=== PATIENT | female | born 1950 | race Caucasian/White ===

== ENCOUNTER 2017-04-13 10:45 | Inpatient (IN) | payer OTHER ==
--- NOTE | 2017-05-06 16:50 | ASMTCMCOM ---
MEREDITH Note CM Note Notes: I returned a call to patient left on the Float phone. She is having a TKA with Dr Montgomery 05/11 and had some questions about her hospitalization and discharge. We talked about what she can bring to hospital (clothes, toiletries, meds, etc). She is planning on going to [facility] for rehab and knows she will be here for the required days. She has toured the facility. I believe that I answered all of her questions, and she will expect to meet with us after her surgery. Date Signed: 05/06/2017 04:50 PM Electronically Signed By:Eileen Rayo RN
[2017-05-11] MEDS ORDERED: ROPIVACAINE 0.2% 80 MG, EPINEPHrine 0.2 MG, KETOROLAC TROMETHAMINE 30 MG in SYRINGE 0 ML IU ONE (06:00)
[2017-05-11] MEDS ORDERED: ceFAZolin 1 GM/5 ML SYR ONE (08:13)
[2017-05-11] MEDS ORDERED: DEXAMETHASONE 4 MG/ML VIAL IVP ONE (09:13)
[2017-05-11] MEDS ORDERED: FAMOTIDINE 20 MG TAB PO ONE (09:13)
[2017-05-11] MEDS ORDERED: ceFAZolin 2 GM/SWFI 2 GM/20 ML SYR IVP ONE (09:13)
[2017-05-11] MEDS ORDERED: ACETAMINOPHEN 325 MG TAB PO ONE (09:13)
--- NOTE | 2017-05-11 09:27 | PDANEPAE ---
ANE History of Present Illness 66 yo female with R knee OA for R TKA. ANE Past Medical History - Cardiovascular History Hx Hypertension: No Hx Arrhythmias: Yes Hx Chest Pain: No Hx Coronary Artery / Peripheral Vascular Disease: No Hx CHF / Valvular Disease: No Hx Palpitations: No Cardiovascular History Comment: paroxysmal A-fib - no syncope/pre-syncope/CP/CV - Pulmonary History Hx COPD: No Hx Asthma/Reactive Airway Disease: No Hx Recent Upper Respiratory Infection: Yes Hx Oxygen in Use at Home: No Hx Sleep Apnea: No Sleep Apnea Screening Result - Last Documented: Negative - Neurologic History Hx Cerebrovascular Accident: No Hx Seizures: No Hx Dementia: No - Endocrine History Hx Diabetes: No Hypothyroid: No Obesity: no - Renal History Hx Renal Disorders: No - Liver History Hx Hepatic Disorders: No - Neurological & Psychiatric Hx Hx Neurological and Psychiatric Disorders: Yes Neurological / Psychiatric History Comment: anxiety,depression,ptsd - Cancer History Hx Cancer: Yes Cancer History Comment: lymphoma 2000 - Congenital Disorder History Hx Congenital Disorders: No - GI History GERD: no Hx Gastrointestinal Disorders: No - Other Health History Other Health History: none. pt's head cold resolved 2 days ago. Believes it may have been allergies (itchy, watery eyes with nasal congestion) - Chronic Pain History Chronic Pain: Yes (left knee, back) - Surgical History Prior Surgeries: left knee replacement 2014. Fx ankle repair x2 2010 ANE Review of Systems Review of Systems: - Exercise capacity METS (RN): 4 METS - Systems EENMT: Reports: tearing, nose congestion (Pt states these resolved about 2 days ago. Thinks it may have been allergy related.) Cardiac: Reports: no symptoms Respiratory: Reports: no symptoms Gastrointestinal: Reports: no symptoms ANE Patient History - Allergies Allergies/Adverse Reactions: morphine Allergy (Severe, Verified 05/01/17 14:09) Other-Enter Comments - Home Medications Home Medications: ALPRAZolam [Xanax 0.5 MG (*)] 0.5 mg PO HS PRN 03/18/17 [Last Taken 05/11/17] Aspirin EC [Aspirin EC 81 mg (*)] 81 mg PO HS 03/18/17 [Last Taken Unknown] Atorvastatin Calcium [Lipitor 40 mg (*)] 40 mg PO HS 03/18/17 [Last Taken ] Cholecalciferol Vit D3 [Vitamin D3 (*)] 1,000 units PO DAILY 03/18/17 [Last Taken 05/04/17] Citalopram Hydrobromide [Citalopram HBr] 40 mg PO DAILY 03/18/17 [Last Taken Unknown] Diazepam [Valium 10 MG (*)] 10 mg PO DAILY PRN 03/18/17 [Last Taken 05/11/17] Divalproex Sodium 250 mg PO DAILY 03/18/17 [Last Taken 05/11/17] Herbals/Supplements -Info Only 1 ea PO DAILY 03/18/17 [Last Taken 05/04/17] Multivitamins [Multivitamin (*)] 1 each PO DAILY 03/18/17 [Last Taken 05/04/17] lamoTRIgine [LamICTAL 100 MG (*)] 100 mg PO DAILY 03/18/17 [Last Taken 05/11/17] lamoTRIgine [LamICTAL] 25 mg PO DAILY 03/18/17 [Last Taken 05/11/17] risperiDONE [RisperDAL] 1 mg PO HS 03/18/17 [Last Taken 05/11/17] - NPO status NPO Since - Liquids (Date): 05/11/17 NPO Since - Liquids (Time): 07:00 NPO Since - Solids (Date): 05/10/17 NPO Since - Solids (Time): 19:30 - Anes Hx Anes Hx: no prior problems - Smoking Hx Smoking Status: Former smoker - Alcohol Use Alcohol Use: Occasionally - Family Anes Hx Family Anes Hx: neg - N/A Family Hx Anesthesia Complications: none ANE Labs/Vital Signs - Vital Signs Blood Pressure: 143/75 Heart Rate: 70 Respiratory Rate: 14 O2 Sat (%): 93 Height: 162.56 cm Weight: 79.379 kg ANE Physical Exam - Airway Neck exam: FROM Mallampati Score: Class 2 Mouth exam: normal dental/mouth exam - Pulmonary Pulmonary: clear to auscultation - Cardiovascular Cardiovascular: regular rate and rhythym - ASA Status ASA Status: III ANE Anesthesia Plan Anesthesia Plan: spinal Regional Anesthesia: adductor canal FNB
[2017-05-11] MEDS ORDERED: LR 1,000 ML IV ONE (09:41)
[2017-05-11] MEDS ORDERED: DIAZEPAM 10 MG TAB PO ONE (09:44)
[2017-05-11] MEDS ORDERED: DIAZEPAM 5 MG TAB ONE (09:51)
--- NOTE | 2017-05-11 10:02 | PDHPUP ---
History & Physical Update H&P update statement: This history and physical update is based on an assessment of the patient which was completed after admission or registration (within 24 hours), but prior to the surgery/procedure. H&P update: H&P reviewed & patient examined, no change in patient's condition since H&P completed
[2017-05-11] MEDS ORDERED: fentaNYL 100 MCG/2 ML INJ ONE (10:20)
[2017-05-11] MEDS ORDERED: DEXAMETHASONE 4 MG/ML VIAL ONE (10:20)
[2017-05-11] MEDS ORDERED: LIDOCAINE 2% 5 ML SDV ONE (10:20)
[2017-05-11] MEDS ORDERED: PROPOFOL/EMULSION 500 MG/50 ML BOTTLE IV ONE ×2 (10:21)
[2017-05-11] MEDS ORDERED: THROMBIN (BOVINE) 5,000 UNIT VIAL TP ONE (11:24)
[2017-05-11] MEDS ORDERED: CALCIUM CHLORIDE 1 GM/10 ML INJ ONE (11:24)
[2017-05-11] MEDS ORDERED: BUPIVACAINE 0.5% 10 ML SDV ONE (11:47)
--- NOTE | 2017-05-11 13:10 | POSTANESTH ---
Post Anesthetic Evaluation Cardiovascular Status: Normal, Stable Respiratory Status: Normal, Stable Level of Consciousness/Mental Status: Can Participate in Eval, Mildly Sleepy, Arousable Pain Control: Adequate, Prn Tx Ordered Nausea/Vomiting Control: Adequate, Prn Tx Ordered Complications Possibly Related to Anesthesia: None Noted (Moving LLE. RLE still immobile secondary to spinal block.)
[2017-05-11] MEDS ORDERED: LACTULOSE 20 GM/30 ML UDCUP PO PRN (13:11)
[2017-05-11] MEDS ORDERED: PROMETHAZINE HCL 25 MG/ML INJ IVP PRN (13:11)
[2017-05-11] MEDS ORDERED: DIPHENOXYLATE/ATROPINE LOMOTIL 1 TAB PO PRN (13:11)
[2017-05-11] MEDS ORDERED: METOCLOPRAMIDE 10 MG/2 ML VIAL IVP PRN (13:11)
[2017-05-11] MEDS ORDERED: MAGNESIUM HYDROXIDE 30 ML UDCUP PO PRN (13:11)
[2017-05-11] MEDS ORDERED: BISACODYL 10 MG SUPP PR PRN (13:11)
[2017-05-11] MEDS ORDERED: POLYETHYLENE GLYCOL 3350 17 GM PKT PO PRN (13:11)
[2017-05-11] MEDS ORDERED: diphenhydrAMINE 25 MG CAP PO PRN (13:11)
[2017-05-11] MEDS ORDERED: PROMETHAZINE HCL 25 MG SUPPR PR PRN (13:11)
[2017-05-11] MEDS ORDERED: DIAZEPAM 10 MG TAB PO PRN (13:15)
[2017-05-11] MEDS ORDERED: LR 1,000 ML IV SCH (13:30)
[2017-05-11] MEDS ORDERED: ceFAZolin 2 GM/SWFI 2 GM/20 ML SYR IVP SCH (14:00)
--- NOTE | 2017-05-11 14:26 | POSTOPPROG ---
Post Op Note Date of Operation: 05/11/17 Surgeon: Renu Montgomery Saw Repairer: Sue Blood PA-C Anesthesiologist: Dr. England Anesthesia: GET(General Endotracheal) Pre-op Diagnosis: right knee osteoarthritis Post-op Diagnosis: right knee osteoarthritis Indication: right knee pain Procedure: right TKA Inf/Abcess present in the surg proc area at time of surgery?: No EBL: Minimal Complications: none
--- NOTE | 2017-05-11 14:27 | SOAPPROG ---
SOAP Progress Note Assessment/Plan: Assessment/Plan: 66y/o female s/p right TKA - stable and doing well - orders as written - post-op xrays pending - PT/OT - active care system; ASA start tomorrow - call with issues or concerns, may need rehab 05/11/17 14:26 Subjective: No pain, doing well Objective: Vital Signs Temp Pulse Resp BP Pulse Ox 36.7 C 70 14 143/75 H 96 05/11/17 13:49 05/11/17 10:15 05/11/17 10:15 05/11/17 10:15 05/11/17 13:49 NAD, well appearing, no distress EOMi, face symmetric MAEx4 incision clean, dressed ICD10 Worksheet Patient Problems: Problems Problem Status Onset Arthritis of knee Acute - ICD10 Problem Qualifiers (1) Arthritis of knee
--- NOTE | 2017-05-11 15:28 | ASMTCMCOM ---
CM Note CM Note Notes: Pt is s/p R TKA. She had expressed an interest in a SNF d/c prior to her surgery. However, she is currently observation status. PT/OT evals are pending. CM will follow for any d/c needs. Date Signed: 05/11/2017 03:28 PM Electronically Signed By:SISI Cannon
[2017-05-11] MEDS: ACETAMINOPHEN 325 MG TAB PO SCH ×2 (16:57→23:45)
[2017-05-11] MEDS: oxyCODONE IR 5 MG TAB PO PRN (16:57)
[2017-05-11] MEDS: ceFAZolin 2 GM/SWFI 2 GM/20 ML SYR IVP SCH (17:01)
--- NOTE | 2017-05-11 18:20 | GOP ---
[f rep st] OPERATIVE REPORT DATE OF OPERATION: 05/11/2017 SURGEON: Renu Montgomery MD HOUSE PIPING INSPECTOR: Sue Blood, PAC ANESTHESIA: General with spinal and adductor canal block. PREOPERATIVE DIAGNOSIS: Severe osteoarthritis, right knee. POSTOPERATIVE DIAGNOSIS: Severe osteoarthritis, right knee. PROCEDURE PERFORMED: Right total knee arthroplasty. FINDINGS: Preoperative x-rays of the patient's right knee demonstrated severe osteoarthritis most pr onounced in the medial compartment. The patient had complete loss of the articular cartilage in the medial compartment and moderate loss in the lateral and patellofemoral joint. At the time of surgery , a cemented Botello [employer] Nephew Journey II total knee arthroplasty was performed. A size 4 femoral com ponent was cemented in place on the femoral side and a size 2 tibial base plate was utilized on the t ibial side. A 10 mm thick cross-linked polyethylene insert was placed in the metal backing of the ti lila. Following implantation of the components, the knee was taken through a range of motion and achi eved full extension and 135 degrees of flexion. The knee was stable in extension and in flexion with varus and valgus stressing. ESTIMATED BLOOD LOSS: Minimal. DESCRIPTION OF PROCEDURE: The patient was taken the operating room, placed in supine position on the operating table. Following induction of adequate general inhalation anesthesia and placement of a s shoshana block, the knee and leg were prepped and draped in the usual sterile manner. The patient recei yan 2 g of IV Ancef. The leg was elevated, exsanguinated, and the tourniquet inflated to 300 mmHg. A midline incision was made extending from just superior to the patella distally to the tibial tuberc le. The [facility] leg valenzuela was used throughout the procedure for positioning. Incision was carried down through the subcutaneous tissue to the retinaculum of the knee. A medial parapatellar arthrotom y was performed. The patella was everted laterally and the thickness was measured. A 9 mm cut was t hen taken from the patella. The metal protector plate was placed on the cut surface of the patella a nd it was placed in the lateral gutter. The knee was then flexed up and the distal femoral drill hol e was made. Intramedullary referencing was utilized for the distal femoral cut. A +2 cut was taken from the distal femur. The femur was then sized and the size 4 was felt to be the best fit. The cut ting jig was shifted anteriorly and then the anterior, posterior, and chamfer cuts were made. The fe moral trial was placed on the distal femur and an excellent fit was noted. The notch was cleared. The reamer was utilized first followed by the box osteotome. The femoral com ponent was then removed. Our attention was then turned to the tibia. The medial and lateral meniscu s were excised and the remainder of the ACL and PCL were released. The tibia was then retracted ante riorly. Again, intramedullary referencing was utilized for the tibia. A drill hole was placed betwe en the tibial spines. The intramedullary guide was inserted and then it was positioned appropriately and pinned. The tibial cut was made. The tibia was then sized and a size 2 tibial component was th e best fit. It was pinned into place and then a trial reduction was performed. Best range of motion and stability was achieved with a 10 mm thick polyethylene. The keel punch was utilized on the tibi a and the trial components were removed. The patella was prepared with the drill. All of the bony s urfaces were thoroughly irrigated and dried and then the cement was mixed. The tibial component was cemented into place first followed by the femoral component and the patellar component. Following im plantation of the components, pressure was held on the components while the cement hardened. Excess cement was removed from around the edges of the components. The trial 10 mm thick polyethylene was r emoved and the tibia insert was opened and inserted. The wound was irrigated out. Prior to placing the polyethylene, the posterior capsule of the knee was injected with 20 cc of joint cocktail. The e xtensor mechanism was also injected with 20 cc of joint cocktail. The retinaculum of the knee was th en closed using #2 FiberWire in a figure-of-8 fashion. Subcutaneous tissue was closed using 2-0 Vicr yl and skin was closed using caren. Platelet gel was used in the deep and superficial portions of the wound to enhance wound healing. Sterile dressings were applied. The patient tolerated the proce dure well and there were no complications. Estimated blood loss minimal. Final sponge and needle co unts were correct. The patient was transported to the recovery room in good condition. /[id number]/MODL
[2017-05-11] MEDS: SENNOSIDES/DOCUSATE SODIUM TAB PO SCH (21:36)
[2017-05-11] MEDS: ATORVASTATIN CALCIUM 40 MG TAB PO SCH (21:36)
[2017-05-11] MEDS: FAMOTIDINE 20 MG TAB PO SCH (21:36)
[2017-05-11] MEDS: risperiDONE 1 MG TAB PO SCH (21:36)
[2017-05-11] MEDS: ALPRAZolam 0.5 MG TAB PO PRN (23:51)
[2017-05-12] MEDS: ceFAZolin 2 GM/SWFI 2 GM/20 ML SYR IVP SCH (00:11)
[2017-05-12] MEDS: ACETAMINOPHEN 325 MG TAB PO SCH ×4 (05:26→22:18)
[2017-05-12] MEDS: CHOLECALCIFEROL VIT D3 1,000 UNITS TAB PO SCH (09:58)
[2017-05-12] MEDS: CITALOPRAM 20 MG TAB PO SCH (09:58)
[2017-05-12] MEDS: DIVALPROEX NA 250 MG TAB PO SCH (09:58)
[2017-05-12] MEDS: ASPIRIN 81 MG CHEWABLE TAB PO SCH ×2 (09:58→22:19)
[2017-05-12] MEDS: FAMOTIDINE 20 MG TAB PO SCH ×2 (09:59→22:19)
[2017-05-12] MEDS: FERROUS SULFATE 140 MG TAB.ER PO SCH (09:59)
[2017-05-12] MEDS: lamoTRIgine 25 MG TAB PO SCH (09:59)
[2017-05-12] MEDS: SENNOSIDES/DOCUSATE SODIUM TAB PO SCH ×2 (09:59→22:20)
[2017-05-12] MEDS: lamoTRIgine 100 MG TAB PO SCH (09:59)
--- NOTE | 2017-05-12 13:16 | SOAPPROG ---
SOAP Progress Note Assessment/Plan: Assessment/Plan: 66y/o female s/p right TKA - stable and doing well - orders as written - post-op xrays stable - PT/OT - active care system; ASA - [place] a fall risk [place], will need [place]hab - call with issues or concerns 05/12/17 13:15 Subjective: Pain well controlled. Walking, eating, drinking Objective: Vital Signs Temp Pulse Resp BP Pulse Ox 36.6 C 71 16 115/54 L 92 05/12/17 11:41 05/12/17 11:41 05/12/17 11:41 05/12/17 11:41 05/12/17 11:41 Laboratory Results 05/12/17 04:31 05/11/17 05/12/17 05/13/17 05:59 05:59 05:59 Intake Total 1940 580 Output Total 1175 400 Balance 765 180 NAD, well appearing, no distress EOMi, face symmetric MAEx4 extension 5 flexion 90 incision CDI, no erythema or active drainage new dressing placed ICD10 Worksheet Patient Problems: Problems Problem Status Onset Arthritis of knee Acute chronic disease mgmt/transitional care Acute - ICD10 Problem Qualifiers (1) Arthritis of knee
--- NOTE | 2017-05-12 15:22 | ASMTCMCOM ---
CM Note CM Note Notes: Pt accepted at [facility] for d/c . Date Signed: 05/12/2017 03:22 PM Electronically Signed By:SISI Edwards
[2017-05-12] MEDS: ATORVASTATIN CALCIUM 40 MG TAB PO SCH (22:19)
[2017-05-12] MEDS: risperiDONE 1 MG TAB PO SCH (22:20)
[2017-05-12] MEDS: ALPRAZolam 0.5 MG TAB PO PRN (22:20)
[2017-05-13] MEDS: oxyCODONE IR 5 MG TAB PO PRN ×4 (00:54→22:24)
[2017-05-13] MEDS: CYCLOBENZAPRINE 10 MG TAB PO PRN ×2 (00:58→22:24)
[2017-05-13] MEDS: ACETAMINOPHEN 325 MG TAB PO SCH ×3 (05:31→18:11)
[2017-05-13] MEDS: CITALOPRAM 20 MG TAB PO SCH (09:23)
[2017-05-13] MEDS: DIVALPROEX NA 250 MG TAB PO SCH (09:23)
[2017-05-13] MEDS: FERROUS SULFATE 140 MG TAB.ER PO SCH (09:24)
[2017-05-13] MEDS: lamoTRIgine 100 MG TAB PO SCH (09:24)
[2017-05-13] MEDS: CHOLECALCIFEROL VIT D3 1,000 UNITS TAB PO SCH (09:24)
[2017-05-13] MEDS: FAMOTIDINE 20 MG TAB PO SCH ×2 (09:24→22:21)
[2017-05-13] MEDS: lamoTRIgine 25 MG TAB PO SCH (09:24)
[2017-05-13] MEDS: ASPIRIN 81 MG CHEWABLE TAB PO SCH ×2 (09:24→22:20)
[2017-05-13] MEDS: SENNOSIDES/DOCUSATE SODIUM TAB PO SCH ×2 (10:24→22:20)
--- NOTE | 2017-05-13 14:45 | SOAPPROG ---
SOAP Progress Note Assessment/Plan: Assessment/Plan: 66y/o female POD#2 right TKA - stable and doing well - orders as written - post-op xrays stable - PT/OT - active care system; ASA - patient a fall risk [place], will need rehab - has been accepted to [facility] - call with issues or concerns 05/13/17 14:44 Subjective: Pain well controlled. Eating, drinking, voiding, did have a BM Objective: Vital Signs Temp Pulse Resp BP Pulse Ox 36.4 C 62 16 94/56 L 91 L 05/13/17 11:44 05/13/17 11:44 05/13/17 11:44 05/13/17 11:44 05/13/17 11:44 Laboratory Results 05/13/17 04:20 05/12/17 05/13/17 05/14/17 05:59 05:59 05:59 Intake Total 1940 1860 Output Total 1175 2500 Balance 765 -640 NAD, well appearing, no distress EOMi, face symmetric MAEx4 extension 5 flexion 80 incision CDI, no erythema or active drainage; new dressing placed ICD10 Worksheet Patient Problems: Problems Problem Status Onset Arthritis of knee Acute chronic disease mgmt/transitional care Acute - ICD10 Problem Qualifiers (1) Arthritis of knee
[2017-05-13] MEDS: ATORVASTATIN CALCIUM 40 MG TAB PO SCH (22:20)
[2017-05-13] MEDS: risperiDONE 1 MG TAB PO SCH (22:21)
[2017-05-14] MEDS: ACETAMINOPHEN 325 MG TAB PO SCH ×3 (00:09→11:52)
[2017-05-14] MEDS: oxyCODONE IR 5 MG TAB PO PRN ×3 (01:54→13:04)
[2017-05-14 07:31] VITALS: RESP 16
[2017-05-14] MEDS: FERROUS SULFATE 140 MG TAB.ER PO SCH (08:03)
[2017-05-14] MEDS: CITALOPRAM 20 MG TAB PO SCH (08:04)
[2017-05-14] MEDS: DIVALPROEX NA 250 MG TAB PO SCH (08:04)
[2017-05-14] MEDS: lamoTRIgine 100 MG TAB PO SCH (08:04)
[2017-05-14] MEDS: FAMOTIDINE 20 MG TAB PO SCH (08:04)
[2017-05-14] MEDS: lamoTRIgine 25 MG TAB PO SCH (08:05)
[2017-05-14] MEDS: ASPIRIN 81 MG CHEWABLE TAB PO SCH (08:05)
[2017-05-14] MEDS: CHOLECALCIFEROL VIT D3 1,000 UNITS TAB PO SCH (08:05)
[2017-05-14] MEDS: CYCLOBENZAPRINE 10 MG TAB PO PRN (08:05)
--- NOTE | 2017-05-14 10:04 | SOAPPROG ---
SOAP Progress Note Assessment/Plan: Assessment/Plan: 66y/o female POD#3 right TKA - stable and doing well - orders as written - post-op xrays stable - PT/OT - active care system; ASA - patient a fall risk [place], will need rehab - has been accepted to [facility], will transfer there today - did well with O2 off (93-95)while I was in the room with her this morning, continue to monitor while here at [facility] and while at rehab - call with issues or concerns - follow-up scheduled on May 25 05/14/17 10:02 Subjective: Taking Oxycodone primarily at night. Pain a bit worse today. Doing well with PT Objective: Vital Signs Temp Pulse Resp BP Pulse Ox 36.8 C 68 16 101/44 L 90 L 05/14/17 07:28 05/14/17 07:28 05/14/17 07:28 05/14/17 07:28 05/14/17 07:28 Laboratory Results 05/13/17 04:20 05/13/17 05/14/17 05/15/17 05:59 05:59 05:59 Intake Total 1860 3550 Output Total 2500 1900 Balance -640 1650 NAD, well appearing, no distress O2 93-95 on RA EOMi, face symmetric MAEx4 extension right knee 5-10 flexion 80 incision clean, dressed; minimal shadowing on dressing ICD10 Worksheet Patient Problems: Problems Problem Status Onset Arthritis of knee Acute chronic disease mgmt/transitional care Acute - ICD10 Problem Qualifiers (1) Arthritis of knee
--- NOTE | 2017-05-14 10:09 | PDIAF ---
- Diagnosis Diagnosis: right knee osteoarthritis Code Status: Full Code - Medication Management Discharge Medications: Medications to Continue on Transfer ALPRAZolam [Xanax 0.5 MG (*)] 0.5 mg PO HS PRN 03/18/17 [Last Taken 05/11/17] Atorvastatin Calcium [Lipitor 40 mg (*)] 40 mg PO HS 03/18/17 [Last Taken ] Cholecalciferol Vit D3 [Vitamin D3 (*)] 1,000 units PO DAILY 03/18/17 [Last Taken 05/04/17] Citalopram Hydrobromide [Citalopram HBr] 40 mg PO DAILY 03/18/17 [Last Taken Unknown] Diazepam [Valium 10 MG (*)] 10 mg PO DAILY PRN 03/18/17 [Last Taken 05/11/17] Divalproex Sodium 250 mg PO DAILY 03/18/17 [Last Taken 05/11/17] Herbals/Supplements -Info Only 1 ea PO DAILY 03/18/17 [Last Taken 05/04/17] Multivitamins [Multivitamin (*)] 1 each PO DAILY 03/18/17 [Last Taken 05/04/17] lamoTRIgine [LaMICtal] 25 mg PO DAILY 03/18/17 [Last Taken 05/11/17] lamoTRIgine [LamICTAL 100 MG (*)] 100 mg PO DAILY 03/18/17 [Last Taken 05/11/17] risperiDONE [Risperdal 1mg (*)] 1 mg PO HS 03/18/17 [Last Taken 05/11/17] Acetaminophen [Tylenol 325mg (*)] 650 mg PO Q6HRS tab 05/14/17 [Last Taken Unknown] Aspirin [Aspirin 81mg (*)] 81 mg PO BID tab.chew 05/14/17 [Last Taken Unknown] Cyclobenzaprine [Flexeril 10 MG (*)] 10 mg PO Q8HRS PRN tab 05/14/17 [Last Taken Unknown] Famotidine [Pepcid 20 MG (*)] 20 mg PO BID tab 05/14/17 [Last Taken Unknown] Ferrous Sulfate [Slow Fe 140 MG (*)] 140 mg PO DAILY tab.er 05/14/17 [Last Taken Unknown] Sennosides/Docusate Sodium [Senokot-S] 1 - 2 tab PO BID tab 05/14/17 [Last Taken Unknown] celeCOXIB [Celebrex (*)] 200 mg PO DAILY cap 05/14/17 [Last Taken Unknown] oxyCODONE IR [Oxycodone Ir (*)] 5 - 10 mg PO Q3HRS PRN tab 05/14/17 [Last Taken Unknown] Discharge Medications: Refer to the Discharge Home Medication list for PRN reason. - Orders Services needed: Registered Nurse, Physical Therapy, Occupational Therapy Diet Recommendation: no restrictions on diet Diet Texture: Regular Texture Diet Wound Care Instructions: keep incision clean and dry Sutures/[place] Site: will remove at post-op visit on May 25 Activity/Weight Bearing Restrictions: WBAT, patient is fall risk - Follow Up Care Current Providers and Referrals: NONE *PRIMARY CARE P,. [Primary Care Provider] -
[2017-05-14 11:47] VITALS: BP 98/48; PULSE 74; TEMP 97.5; O2SAT 93
[2017-05-14] MEDS: SENNOSIDES/DOCUSATE SODIUM TAB PO SCH (12:07)
--- NOTE | 2017-05-14 14:35 | ASMTCMCOM ---
CM Note CM Note Notes: Pt medically stable for d/c to [facility], RN Carlin to call report. Echo whalen Flatrons scheduled wc van for 1300. Orders sent in [employer]scripts. Date Signed: 05/14/2017 02:34 PM Electronically Signed By:SISI Edwards
--- NOTE | 2017-05-14 14:35 | ASDISCHSUM ---
Discharge Information Plan Status:SNF Medically Cleared to Leave: Discharge Date:05/14/2017 02:10 PM D/C Disposition:Longterm Facility ADT D/C Disposition:Other Rehab, Not [place] Projected Discharge Date:05/14/2017 11:00 AM Transportation at D/C:Wheelchair Van Discharge Delay Reason: Follow-Up Date:05/14/2017 11:00 AM Discharge Slot: Final Diagnosis: Placement Information Referral Type:*Shelter/SNF Referral ID:[id number] Provider Name:[facility] Address 1:[address] Address 2: City:[place] Selection Factors: State:[place] Patient Contact Information Contact Name:SONIAINDERJITKAVON Relationship:Friend Address: Work Phone: City:[place] Alternate Phone: State/Zip Code:[place] Email: Financial Information Financial Class:Medicare Primary Plan Desc:MEDICARE INPATIENT Primary Plan Number:[id number] Secondary Plan Desc:EV O O OPEN [facility] LOCAL Secondary Plan Number:[id number] Assessment Information [facility] CM Progress Note CM Note CM Note Notes: I returned a call to patient left on the Float phone. She is having a TKA with Dr Montgomery 05/11 and had some questions about her hospitalization and discharge. We talked about what she can bring to hospital (clothes, toiletries, meds, etc). She is planning on going to [facility] for rehab and knows she will be here for the required days. She has toured the facility. I believe that I answered all of her questions, and she will expect to meet with us after her surgery. Date Signed: 05/06/2017 04:50 PM Electronically Signed By:Eileen Rayo RN [facility] CM Progress Note CM Note CM Note Notes: Pt is s/p R TKA. She had expressed an interest in a SNF d/c prior to her surgery. However, she is currently observation status. PT/OT evals are pending. CM will follow for any d/c needs. Date Signed: 05/11/2017 03:28 PM Electronically Signed By:SISI Cannon [facility] CM Progress Note CM Note CM Note Notes: Pt accepted at [facility] for d/c . Date Signed: 05/12/2017 03:22 PM Electronically Signed By:SISI Edwards [facility] CM Progress Note CM Note CM Note Notes: Pt medically stable for d/c to [facility], JUSTIN Gillis to call report. Echo whalen Flatrons scheduled van for 1300. Orders sent in [employer]. Date Signed: 05/14/2017 02:34 PM Electronically Signed By:SISI Edwards Intervention Information Intervention Type:*Incorrect Registration Date of Service:05/11/2017 02:36 PM Patient Type:Inpatient Staff Member:JUSTIN Schneider Susan Hours: Discipline: Severity: Comment: Intervention Type:*VENEGAS-Signed Date of Service:05/11/2017 04:37 PM Patient Type:Observation Staff Member:Tricia Connor Hours: Discipline: Severity: Comment:
== END 2017-05-14 14:10 | DRG 470 ==
LOC: F3N 05-11 08:47 → INTOOBSV 05-11 08:47 → F3N 05-11 14:28 → OBSVTOIN 05-11 15:54
PROVIDERS: ADMIT Orthopaedic Surgery; ATTEND Orthopaedic Surgery
PROC: 0SRC0J9 Replacement of Right Knee Joint with Synthetic Substitute, Cemented, Open Approach (ICD-10-PCS; principal; 2017-05-11 10:45)
DX: M17.11 Unilateral primary osteoarthritis, right knee (principal); I25.10 Atherosclerotic heart disease of native coronary artery without angina pectoris; E78.5 Hyperlipidemia, unspecified; I49.3 Ventricular premature depolarization
CPT/HCPCS: 97110-GP; 97116-GP; 97161-GP; 97165-GO; 97535-GO; C1713; G8978-GP-CK; G8979-GP-CI; G8987-GO-CJ; G8988-GO-CI; G8989-GO-CI; J0171; J0690; J1100; J1885; J2704; J2795; J3010

== ENCOUNTER 2018-05-31 08:10 | Inpatient (IN) | payer OTHER ==
--- NOTE | 2018-05-30 11:35 | GHP ---
[f rep st] PREOP HISTORY AND PHYSICAL DATE OF ADMISSION: 05/31/2018 DATE OF PLANNED PROCEDURE: 05/31/2018 ADMISSION DIAGNOSIS: Osteoarthritis left hip. PLANNED PROCEDURE: Left total hip arthroplasty through an anterior approach. HISTORY OF PRESENT ILLNESS: The patient is a 67-year-old female with slowly worsening left hip pain that has failed conservative management. Imaging shows worsening osteoarthritis of the hip, and decision has been made to proceed with a total hip arthroplasty through an anterior approach. PRIOR MEDICAL HISTORY: Anxiety, heart disease, and cancer. SURGICAL HISTORY: Total knee arthroplasty in 2017; open reduction, internal fixation, right ankle 2009; cervical spine excision of cyst 1999; lumbar laminectomy in 1990; appendectomy in 1952. MEDICATIONS: Xanax 2 mg, aspirin 81 mg daily, atorvastatin 40 mg, Celebrex 100 mg daily, citalopram 40 mg daily, diazepam 5 mg, risperidone 1 mg. ALLERGIES: Morphine gives her nightmares. SOCIAL HISTORY: She does not smoke. Occasional alcohol use. REVIEW OF SYSTEMS: No shortness of breath or chest pain. Otherwise, review of systems unremarkable. PHYSICAL EXAMINATION: GENERAL: Healthy 67-year-old female. VITAL SIGNS: She is 5 feet 4 inches tall, weighs 160 pounds. Blood pressure is 108/64, heart rate 76. Alert and oriented x3. HEENT: Normocephalic, atraumatic. Extraocular muscles intact. NECK: Supple. There is no lymphadenopathy. No JVD. CHEST: Clear to auscultation. CARDIOVASCULAR: Regular rate and rhythm. ABDOMEN: Soft, nontender, nondistended. There is no hepatosplenomegaly. EXTREMITIES: Focusing on the left hip, leg lengths are equal. She has full extension of the hip, flexes to 90 degrees, 30 degrees of external rotation, 10 degrees of internal rotation with groin pain, 20 degrees of abduction. Motor strength is 4+/5. 2+ dorsalis pedis/posterior tibial pulses. Calf is soft. IMAGING: X-rays: AP and a frog-leg lateral are reviewed. They show severe osteoarthritis of the left hip. ASSESSMENT: Severe osteoarthritis, left hip, failed conservative management. PLAN: I recommend proceeding with a total hip arthroplasty through an anterior approach. A 1% dislocation rate, possibility of postoperative blood clots, and infection were all discussed. She understands these risks, wished to proceed. Preoperative paperwork was completed. We will plan on surgery at [facility] on May 31. /[id number]/MODL MTDD
--- NOTE | 2018-05-31 07:51 | PDANEPAE ---
ANE Past Medical History - Cardiovascular History Hx Hypertension: No Hx Arrhythmias: Yes Hx Chest Pain: No Hx Coronary Artery / Peripheral Vascular Disease: No Hx CHF / Valvular Disease: No Hx Palpitations: No Cardiovascular History Comment: paroxysmal A-fib - no syncope/pre-syncope/CP/CV - Pulmonary History Hx COPD: No Hx Asthma/Reactive Airway Disease: No Hx Recent Upper Respiratory Infection: No Hx Oxygen in Use at Home: No Hx Sleep Apnea: No Sleep Apnea Screening Result - Last Documented: Negative - Neurologic History Hx Cerebrovascular Accident: No Hx Seizures: No Hx Dementia: No - Endocrine History Hx Diabetes: No Hypothyroid: No Hyperthyroid: No Obesity: no - Renal History Hx Renal Disorders: No - Liver History Hx Hepatic Disorders: No - Neurological & Psychiatric Hx Hx Neurological and Psychiatric Disorders: Yes Neurological / Psychiatric History Comment: anxiety,depression,ptsd - Cancer History Hx Cancer: Yes Cancer History Comment: lymphoma 1999 - Congenital Disorder History Hx Congenital Disorders: Yes Congenital History Comment: Afib - GI History GERD: no Hx Gastrointestinal Disorders: No - Other Health History Other Health History: none - Chronic Pain History Chronic Pain: Yes (right knee) - Surgical History Prior Surgeries: left knee replacement 2013. Fx ankle repair x2 2010. compression femur fx 07/31. right TKA 05/31 ANE Review of Systems Review of Systems: - Exercise capacity Exercise capacity: >=4 METS, limited by disability METS (RN): 4 METS ANE Patient History - Allergies Allergies/Adverse Reactions: morphine Allergy (Severe, Verified 05/01/17 14:09) Other-Enter Comments - Home Medications Home Medications: Atorvastatin Calcium [Lipitor 40 mg (*)] 40 mg PO HS 03/18/17 [Last Taken ] Citalopram Hydrobromide [Citalopram HBr] 40 mg PO DAILY 03/18/17 [Last Taken ] Divalproex Sodium 250 mg PO DAILY 03/18/17 [Last Taken 05/30/18] Herbals/Supplements -Info Only 1 ea PO DAILY 03/18/17 [Last Taken 1 Week Ago ~] Multivitamins [Multivitamin (*)] 1 tab PO DAILY 03/18/17 [Last Taken 1 Week Ago ~05/24/18] risperiDONE [Risperdal 1mg (*)] 1 mg PO HS 03/18/17 [Last Taken 05/30/18] ALPRAZolam [Alprazolam] 1 mg PO DAILY PRN 05/10/18 [Last Taken 05/30/18] Aspirin EC [Aspirin EC 81 mg (*)] 81 mg PO HS 05/10/18 [Last Taken 1 Week Ago ~ 05/24/18] Calcium Carbonate [Oyster Shell Calcium 500 mg (*)] 500 mg PO DAILY@05/10/18 [Last Taken 1 Week Ago ~05/24/18] Cholecalciferol Vit D3 [Vitamin D3 (*)] 1,000 units PO DAILY@05/10/18 [Last Taken 1 Week Ago ~05/24/18] [place]-3 Fatty Acids [Fish Oil 1000 mg (*)] 1,000 mg PO DAILY@05/10/18 [Last Taken 1 Week Ago ~05/24/18] Vitamin B Complex [Vitamin B Complex (OTC)] 1 tab PO DAILY@05/10/18 [Last Taken 1 Week Ago ~05/24/18] lamoTRIgine [LamICTAL 100 MG (*)] 125 mg PO DAILY 05/10/18 [Last Taken 05/30/18] - Anes Hx Anes Hx: no prior problems - Smoking Hx Smoking Status: Former smoker Marijuana use: No - Alcohol Use Alcohol Use: Occasionally - Family Anes Hx Family Anes Hx: neg - N/A Family Hx Anesthesia Complications: none ANE Labs/Vital Signs - Vital Signs Height: 161.29 cm Weight: 74.843 kg ANE Physical Exam - Airway Neck exam: FROM Mallampati Score: Class 2 Mouth exam: normal dental/mouth exam - Pulmonary Pulmonary: no respiratory distress, no rales or rhonchi, clear to auscultation - Cardiovascular Cardiovascular: regular rate and rhythym, no murmur, rub, or gallop ANE Anesthesia Plan Anesthesia Plan: MAC, spinal Total IV Anesthesia: No
[2018-05-31] MEDS ORDERED: ceFAZolin 2 GM/DEXTROSE 100 ML IV ONE (08:31)
[2018-05-31] MEDS ORDERED: LR 1,000 ML IV ONE (08:37)
[2018-05-31] MEDS ORDERED: BUPIVACAINE 0.5% 30 ML SDV ONE (09:12)
[2018-05-31] MEDS ORDERED: BUPIVACAINE/EPI 0.5% 30 ML SDV ONE (09:13)
[2018-05-31] MEDS ORDERED: MIDAZOLAM 2 MG/2 ML VIAL IVP ONE (09:26)
[2018-05-31] MEDS ORDERED: MIDAZOLAM 2 MG/2 ML VIAL ONE (09:36)
[2018-05-31] MEDS ORDERED: fentaNYL 100 MCG/2 ML INJ ONE (09:38)
[2018-05-31] MEDS ORDERED: PROPOFOL 200 MG/20 ML VIAL ONE (09:39)
[2018-05-31] MEDS ORDERED: PROPOFOL/EMULSION 500 MG/50 ML BOTTLE IV ONE (09:53)
[2018-05-31] MEDS ORDERED: LIDOCAINE 2% 5 ML SDV ONE (10:00)
[2018-05-31] MEDS ORDERED: fentaNYL 100 MCG/2 ML INJ IVP PRN (10:43)
[2018-05-31] MEDS ORDERED: NALOXONE HCL 0.4 MG/ML INJ IVP PRN (10:43)
[2018-05-31] MEDS ORDERED: LR 500 ML IV PRN (10:43)
[2018-05-31] MEDS ORDERED: HYDROCODONE/APAP 5/325 TAB PO PRN (10:43)
[2018-05-31] MEDS ORDERED: ONDANSETRON 4 MG/2 ML VIAL IVP PRN ×2 (10:43→11:46)
[2018-05-31] MEDS ORDERED: PHENYLEPHRINE HCL 100 MCG/ML SYR IVP PRN (10:43)
[2018-05-31] MEDS ORDERED: ACETAMINOPHEN 500 MG TAB PO PRN (10:43)
[2018-05-31] MEDS ORDERED: oxyCODONE IR 5 MG TAB PO PRN (10:43)
[2018-05-31] MEDS ORDERED: PROMETHAZINE HCL 25 MG/ML INJ IVP PRN ×2 (10:43→11:46)
[2018-05-31] MEDS ORDERED: PHENYLEPHRINE HCL 100 MCG/ML SYR ONE (11:08)
[2018-05-31] MEDS ORDERED: traMADol 50 MG TAB PO PRN (11:46)
[2018-05-31] MEDS ORDERED: DIPHENOXYLATE/ATROPINE LOMOTIL 1 TAB PO PRN (11:46)
[2018-05-31] MEDS ORDERED: BISACODYL 10 MG SUPP PR PRN (11:46)
[2018-05-31] MEDS ORDERED: TEMAZEPAM 15 MG CAP PO PRN (11:46)
[2018-05-31] MEDS ORDERED: ONDANSETRON DISINTEGRATING 4 MG TAB PO PRN (11:46)
[2018-05-31] MEDS ORDERED: MAGNESIUM HYDROXIDE 30 ML UDCUP PO PRN (11:46)
[2018-05-31] MEDS ORDERED: diphenhydrAMINE 25 MG CAP PO PRN (11:46)
[2018-05-31] MEDS ORDERED: LACTULOSE 20 GM/30 ML UDCUP PO PRN (11:46)
[2018-05-31] MEDS ORDERED: POLYETHYLENE GLYCOL 3350 17 GM PKT PO PRN (11:46)
[2018-05-31] MEDS ORDERED: PROMETHAZINE HCL 25 MG SUPPR PR PRN (11:46)
--- NOTE | 2018-05-31 11:46 | POSTOPPROG ---
Post Op Note Date of Operation: 05/31/18 Surgeon: Malachi Vasquez Cyber Security Specialist: Kerline Lopez PA-C Anesthesiologist: Bernard Anesthesia: GET(General Endotracheal), Spinal Pre-op Diagnosis: Left hip osteoarthritis Post-op Diagnosis: Left hip osteoarthritis Indication: Left hip osteoarthritis Procedure: Left total hip arthroplasty (anterior) Inf/Abcess present in the surg proc area at time of surgery?: No Depth: Deep Incisional (Fascial) EBL: 50-100
[2018-05-31] MEDS ORDERED: BUPIVACAINE/DEXTROSE 7.5MG/ML 2 ML SPINAL AMP SP ONE (12:20)
--- NOTE | 2018-05-31 12:20 | PDMN ---
Medical Necessity Medical necessity: [facility] S560 Hip Arthroplasty, A-2 days: 67 yo s/p L ADRIAN, MC IP only
--- NOTE | 2018-05-31 13:04 | POSTANESTH ---
Post Anesthetic Evaluation Cardiovascular Status: Normal, Stable Respiratory Status: Normal, Stable Level of Consciousness/Mental Status: Can Participate in Eval Pain Control: Adequate, Prn Tx Ordered Nausea/Vomiting Control: Adequate, Prn Tx Ordered Complications Possibly Related to Anesthesia: None Noted
[2018-05-31] MEDS ORDERED: ALPRAZolam 1 MG TAB PO PRN (14:15)
[2018-05-31] MEDS: LR 1,000 ML IV SCH (14:19)
[2018-05-31] MEDS: CHOLECALCIFEROL VIT D3 1,000 UNITS TAB PO SCH (14:38)
[2018-05-31] MEDS: CALCIUM CARBONATE 500 MG TAB PO SCH (14:38)
[2018-05-31] MEDS: VITAMIN B COMPLEX 1 EA CAP/TAB PO SCH (14:39)
[2018-05-31] MEDS: CYCLOBENZAPRINE 10 MG TAB PO PRN (15:30)
--- NOTE | 2018-05-31 16:15 | GOP ---
[f rep st] OPERATIVE REPORT DATE OF OPERATION: 05/31/2018 SURGEON: Malachi Vasquez MD WATER POLLUTION SCIENTIST: Kerline Lopez PA-C ANESTHESIA: Spinal. ANESTHESIOLOGIST: Dr. Irizarry. PREOPERATIVE DIAGNOSIS: Osteoarthritis, left hip. POSTOPERATIVE DIAGNOSIS: Osteoarthritis, left hip. PROCEDURE PERFORMED: Left total hip arthroplasty through anterior approach. FINDINGS: INDICATIONS: The patient is a 67-year-old female with longstanding bilateral hip pain, left worse th an right. She has failed conservative management. Decision has been made to proceed with a total hi p arthroplasty through an anterior approach. DESCRIPTION OF PROCEDURE: After proper informed consent was obtained, patient was taken to the opera ting room. Time-out was performed. Spinal anesthetic was performed. She was then positioned on the OR table with the left lower extremity supported with the arch table. Right lower extremity was zackary usman in a well-padded well leg valenzuela. All bony prominences were well padded. The left hip was prepp ed and draped in usual sterile fashion. I made a standard anterior incision. Bleeding was controlled with a combination of electrocautery an d Aquamantys device. Soft tissues were carefully dissected into the anterior interval. The fascia o verlying the TFL was incised and I bluntly dissected into the interval and identified the circumflex femoral vessels. These were cauterized with Aquamantys. Using a Townsend elevator, I elevated the soft tissues off the femoral neck. Retractor was placed around the inferior superior aspect of the femora l neck. The anterior capsule was excised. Retractors were placed around the bone, and using oscilla ting saw, made my femoral neck cut. Head and neck were removed with the corkscrew device. We then p laced retractors around the superior and inferior aspect of the acetabulum. Remaining labrum and sof t tissue were removed. We then started to ream to a size 44 and reamed up sequentially to a size 52 with good positioning of the reamer. We trialed the size 52 and placed the final 52 cup, and confirmed its position with AP fluoroscopic imaging. A neutral poly liner was tapped into place. We then externally rotated the fe mur to 90 degrees, placed retractor on the lesser trochanter and greater trochanter, and removed the remaining posterior capsule and remaining bone at the femoral neck. We then used our femoral canal-f inding device, entered the femoral canal, and then broached up to a size 4 with good rotational stabi lity. We then trialed a 0 and a +2.5 half head by bringing the leg up from full extension and adduct ion into neutral rotation. The +2.5 gave us a little better leg length evangelical. Trial implants were removed. Final stem was tapped into place, +2.5 head was tapped into place, reduced the hip a f inal time. Final imaging showed satisfactory evangelical of leg lengths, good positioning of the cup and stem with fill of the canal. Wound was irrigated. Bleeding was controlled with the Aquamantys. The fascia overlying the TLF was closed 0 Vicryl, superficial layers closed with 0 Vicryl. Skin was closed with a Quill 3 0 subcuticu lar stitch. Steri-Strips were applied to the skin. We instilled 30 mL of 50% Marcaine with epinephr ine around the incision, A sterile, silver impregnated dressing was applied. Patient was awakened fr om anesthesia, taken to recovery room in satisfactory condition. There were no immediate intraoperat charity complications. Kerline Lopez's assistance was required throughout the entire case. IMPLANTS USED: Ana size 52 acetabular shell, 0 polyethylene insert, 127 degree Accolade II size 4 femoral stem with a +2.5 mm ceramic biologic delta head. COMPLICATIONS: None. DRAINS: None. /[id number]/MODL
[2018-05-31] MEDS: lamoTRIgine 25 MG TAB PO SCH (17:20)
[2018-05-31] MEDS: DIVALPROEX NA 250 MG TAB PO SCH (17:20)
[2018-05-31] MEDS: lamoTRIgine 100 MG TAB PO SCH (17:20)
[2018-05-31] MEDS: ACETAMINOPHEN 325 MG TAB PO SCH ×2 (18:36→23:50)
[2018-05-31] MEDS: ceFAZolin 2 GM/DEXTROSE 100 ML IV SCH (18:36)
[2018-05-31] MEDS: oxyCODONE IR 5 MG TAB PO PRN ×2 (18:36→19:03)
[2018-05-31] MEDS: SENNOSIDES/DOCUSATE SODIUM TAB PO SCH (20:10)
[2018-05-31] MEDS: risperiDONE 1 MG TAB PO SCH (20:11)
[2018-05-31] MEDS: ATORVASTATIN CALCIUM 40 MG TAB PO SCH (20:11)
[2018-05-31] MEDS: FAMOTIDINE 20 MG TAB PO SCH (20:11)
[2018-06-01] MEDS: ceFAZolin 2 GM/DEXTROSE 100 ML IV SCH (01:47)
[2018-06-01] MEDS: LR 1,000 ML IV SCH (01:48)
[2018-06-01] MEDS: oxyCODONE IR 5 MG TAB PO PRN ×5 (01:57→15:50)
[2018-06-01] MEDS: ACETAMINOPHEN 325 MG TAB PO SCH ×4 (05:31→23:47)
[2018-06-01] MEDS: CYCLOBENZAPRINE 10 MG TAB PO PRN ×3 (07:43→23:49)
[2018-06-01] MEDS: DIVALPROEX NA 250 MG TAB PO SCH (08:31)
[2018-06-01] MEDS: RIVAROXABAN 10 MG TAB PO SCH (08:31)
[2018-06-01] MEDS: lamoTRIgine 25 MG TAB PO SCH (08:31)
[2018-06-01] MEDS: FAMOTIDINE 20 MG TAB PO SCH ×2 (08:31→20:59)
[2018-06-01] MEDS: SENNOSIDES/DOCUSATE SODIUM TAB PO SCH ×2 (08:31→20:58)
[2018-06-01] MEDS: lamoTRIgine 100 MG TAB PO SCH (08:32)
[2018-06-01] MEDS: CITALOPRAM 20 MG TAB PO SCH (08:32)
--- NOTE | 2018-06-01 12:30 | ASMTCMCOM ---
CM Note CM Note Notes: Pt had planned OA of L hip. Pt was pre-arranged with [facility]. Today PT rec SNF and pt wants to go [facility] Pt resides alone. CM to follow. D/c plan: [facility] pending acceptance Date Signed: 06/01/2018 12:30 PM Electronically Signed By:SISI Edwards
[2018-06-01] MEDS: VITAMIN B COMPLEX 1 EA CAP/TAB PO SCH (12:42)
[2018-06-01] MEDS: CALCIUM CARBONATE 500 MG TAB PO SCH (12:42)
[2018-06-01] MEDS: CHOLECALCIFEROL VIT D3 1,000 UNITS TAB PO SCH (12:42)
--- NOTE | 2018-06-01 12:51 | SOAPPROG ---
SOAP Progress Note Assessment/Plan: Assessment: Plan: 06/01/18 12:50 POD#1 LT ADRIAN xarelto PT/OT may need rehab Subjective: painful when up with PT Objective: dressing with small amount bleeding leg lengths equal calf soft 5/5 df/pf Vital Signs Temp Pulse Resp BP Pulse Ox 36.9 C 73 16 115/53 L 93 06/01/18 11:26 06/01/18 11:26 06/01/18 11:26 06/01/18 11:26 06/01/18 11:26 Laboratory Results 06/01/18 04:45 05/31/18 06/01/18 06/02/18 05:59 05:59 05:59 Intake Total 3869 Output Total 1400 600 Balance 2469 -600 ICD10 Worksheet Patient Problems: Problems Problem Status Onset Arthritis of knee Acute chronic disease mgmt/transitional care Acute
[2018-06-01] MEDS: ATORVASTATIN CALCIUM 40 MG TAB PO SCH (20:58)
[2018-06-01] MEDS: risperiDONE 1 MG TAB PO SCH (20:59)
[2018-06-02] MEDS: oxyCODONE IR 5 MG TAB PO PRN ×3 (03:36→18:25)
[2018-06-02] MEDS: ACETAMINOPHEN 325 MG TAB PO SCH ×4 (06:06→22:55)
[2018-06-02] MEDS: lamoTRIgine 25 MG TAB PO SCH (09:35)
[2018-06-02] MEDS: lamoTRIgine 100 MG TAB PO SCH (09:35)
[2018-06-02] MEDS: SENNOSIDES/DOCUSATE SODIUM TAB PO SCH ×2 (09:35→20:34)
[2018-06-02] MEDS: CYCLOBENZAPRINE 10 MG TAB PO PRN (09:36)
[2018-06-02] MEDS: RIVAROXABAN 10 MG TAB PO SCH (09:37)
[2018-06-02] MEDS: DIVALPROEX NA 250 MG TAB PO SCH (09:37)
[2018-06-02] MEDS: FAMOTIDINE 20 MG TAB PO SCH ×2 (09:37→20:34)
[2018-06-02] MEDS: CITALOPRAM 20 MG TAB PO SCH (09:37)
[2018-06-02] MEDS: CALCIUM CARBONATE 500 MG TAB PO SCH (12:29)
[2018-06-02] MEDS: VITAMIN B COMPLEX 1 EA CAP/TAB PO SCH (12:29)
[2018-06-02] MEDS: CHOLECALCIFEROL VIT D3 1,000 UNITS TAB PO SCH (12:29)
--- NOTE | 2018-06-02 14:48 | SOAPPROG ---
SOAP Progress Note Assessment/Plan: Assessment: Plan: 06/01/18 12:50 POD#1 LT ADRIAN xarelto PT/OT may need rehab 06/02/18 14:47 POD#2 LT ADRIAN Rehab xarelto 10 mg x 21 days Subjective: feeling better Today wants to go to rehab Objective: dressing changed blisters from tape incision dry thigh soft 5/5 df/pf Vital Signs Temp Pulse Resp BP Pulse Ox 37.1 C 69 17 107/56 L 93 06/02/18 07:35 06/02/18 07:35 06/02/18 07:35 06/02/18 07:35 06/02/18 07:35 Laboratory Results 06/02/18 04:40 06/01/18 06/02/18 06/03/18 05:59 05:59 05:59 Intake Total 3869 1050 Output Total 1400 600 Balance 2464 450 ICD10 Worksheet Patient Problems: Problems Problem Status Onset Arthritis of knee Acute chronic disease mgmt/transitional care Acute
--- NOTE | 2018-06-02 14:51 | PDIAF ---
- Diagnosis Diagnosis: OA LT hip Code Status: Full Code - Medication Management Chcf Antibiotics: no Discharge Medications: electronically signed and located in the Home Medication List. PICC Care - Routine: N/A - Orders Services needed: Physical Therapy, Occupational Therapy Diet Recommendation: no restrictions on diet Diet Texture: Regular Texture Diet Leon: Not applicable Wound Care Instructions: keep wound covered for showers x 7 days Sutures/Frank Site: Lt hip, subcuticular Additional Instructions: WBAT LLE. Keep dressing clean and dry. Prescriptions for pain medication given. Xarelto x 21 days post op. PT/OT. Follow up 14 days post op for wound check and repeat evaluation. - Follow Up Care Current Providers and Referrals: Unknown,Unknown [Primary Care Provider] - Malachi Vasquez MD [Medical Doctor] -
[2018-06-02] MEDS: ATORVASTATIN CALCIUM 40 MG TAB PO SCH (20:34)
[2018-06-02] MEDS: risperiDONE 1 MG TAB PO SCH (20:34)
[2018-06-03] MEDS: ACETAMINOPHEN 325 MG TAB PO SCH ×2 (05:02→13:17)
[2018-06-03] MEDS: oxyCODONE IR 5 MG TAB PO PRN ×2 (05:37→13:17)
[2018-06-03] MEDS: lamoTRIgine 100 MG TAB PO SCH (07:53)
[2018-06-03] MEDS: DIVALPROEX NA 250 MG TAB PO SCH (07:53)
[2018-06-03] MEDS: CITALOPRAM 20 MG TAB PO SCH (07:54)
[2018-06-03] MEDS: RIVAROXABAN 10 MG TAB PO SCH (07:54)
[2018-06-03] MEDS: SENNOSIDES/DOCUSATE SODIUM TAB PO SCH (07:54)
[2018-06-03] MEDS: FAMOTIDINE 20 MG TAB PO SCH (07:54)
[2018-06-03] MEDS: lamoTRIgine 25 MG TAB PO SCH (07:54)
[2018-06-03 08:34] VITALS: BP 108/47
--- NOTE | 2018-06-03 12:42 | PDIAF ---
- Diagnosis Diagnosis: OA LT hip Code Status: Full Code - Medication Management Shelter Antibiotics: no Discharge Medications: electronically signed and located in the Home Medication List. PICC Care - Routine: N/A - Orders Services needed: Physical Therapy, Occupational Therapy Diet Recommendation: no restrictions on diet Diet Texture: Regular Texture Diet Leon: Not applicable Wound Care Instructions: keep wound covered for showers x 7 days Sutures/Frank Site: Lt hip, subcuticular Additional Instructions: WBAT LLE. Keep dressing clean and dry. Prescriptions for pain medication given. Xarelto x 21 days post op. PT/OT. Follow up 14 days post op for wound check and repeat evaluation. - Follow Up Care Current Providers and Referrals: Malachi Vasquez MD [Medical Doctor] - Unknown,Unknown [Primary Care Provider] -
--- NOTE | 2018-06-03 12:42 | SOAPPROG ---
SOAP Progress Note Assessment/Plan: Assessment: Pt is POD#3 s/p LTHA anterior approach. She reports she is doing much better today PE: Dressing does have sanguinous drainage. Minimal pain with gentle ROM. Calf is soft to compression without pain. DF/PF intact Plan: Plan to D/C to SNF today. Please change dressing to new waterproof dressing prior to patient leaving. Xarelto x 21 days post op. Follow up in office in 14 days post op for repeat evaluation and wound check 06/03/18 12:40 Objective: Vital Signs Temp Pulse Resp BP Pulse Ox 36.9 C 75 16 108/47 L 93 06/03/18 08:00 06/03/18 08:00 06/03/18 08:00 06/03/18 08:00 06/03/18 08:00 Laboratory Results 06/02/18 04:40 06/02/18 06/03/18 06/04/18 05:59 05:59 05:59 Intake Total 1050 1200 Output Total 600 Balance 450 1200 ICD10 Worksheet Patient Problems: Problems Problem Status Onset Arthritis of knee Acute chronic disease [facility]/transitional care Acute
[2018-06-03] MEDS: CALCIUM CARBONATE 500 MG TAB PO SCH (13:17)
[2018-06-03] MEDS: CHOLECALCIFEROL VIT D3 1,000 UNITS TAB PO SCH (13:17)
[2018-06-03] MEDS: VITAMIN B COMPLEX 1 EA CAP/TAB PO SCH (13:17)
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
--- NOTE | 2018-06-03 14:33 | ASMTCMCOM ---
CM Note CM Note Notes: Pt medically stable for d/c to [facility]. Orders sent in [employer]. RN Parul to call report. Carina with [facility] scheduled wc transport. Date Signed: 06/03/2018 02:32 PM Electronically Signed By:SISI Edwards
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
== END 2018-06-03 14:42 | DRG 470 ==
LOC: F1N 08:10 → OBSVTOIN 11:52 → F3N 14:00
PROVIDERS: ADMIT Orthopaedic Surgery; ATTEND Orthopaedic Surgery
PROC: 0SRB04A Replacement of Left Hip Joint with Ceramic on Polyethylene Synthetic Substitute, Uncemented, Open Approach (ICD-10-PCS; principal; 2018-05-31 09:45)
DX: M16.12 Unilateral primary osteoarthritis, left hip (principal); I48.0 Paroxysmal atrial fibrillation; F41.8 Other specified anxiety disorders; F43.10 Post-traumatic stress disorder, unspecified; G89.29 Other chronic pain; Z96.653 Presence of artificial knee joint, bilateral; Z87.891 Personal history of nicotine dependence
CPT/HCPCS: 97116-GP; 97161-GP; 97165-GO; 97530-GP; J0690; J2250; J2370; J2550; J2704; J3010